=== PATIENT | male | born 1965 | race Caucasian/White ===

== ENCOUNTER 2017-03-15 00:09 | Inpatient (IN) | payer MEDICAID, SELFPAY ==
[2017-03-15] VITALS (16 sets, daily range): BP systolic 121–193; BP diastolic 63–103; PULSE 78–97; RESP 12–18; TEMP 36.5–37.1; O2SAT 93–100; BMI 29.3; BMI 28.8
--- NOTE | 2017-03-15 00:12 | NURSING ---
RN CALLED FOR EKG, PULLED OLD EKG'S FOR
--- NOTE | 2017-03-15 00:17 | CT_ITS ---
STUDY: CT BRAIN WITHOUT CONTRAST REASON FOR EXAM: Male, 51 years old. RT ARM WEAKNESS SINCE 22:50 PM,ELEVATED BP HX:HTN,CVA RADIATION DOSAGE (If Supplied By Facility): CTDIvol = ( 44.99 ) mGy, DLP = ( 779.24 ) mGycm TECHNIQUE: Transaxial CT imaging of the brain was performed without administration of intravenous contrast material. Individualized dose optimization techniques were used for this CT. COMPARISON: None. FINDINGS: Normal soft tissue structures. Normal calvarium. Normal size ventricles and extra-axial spaces for the patient's age. Normal white matter tracts of the cerebral hemispheres. Normal basal ganglia and thalami. Normal brainstem. Normal cerebellum. There is no intracranial hemorrhage. There are no findings of an acute ischemic infarction. Normal visualized paranasal sinuses. CT/Brain/Head without Contrast IMPRESSION: Normal unenhanced CT scan of the brain. Electronically Signed: Lucio Hines MD at 0:58 EST Tel , Service support ,
--- NOTE | 2017-03-15 00:17 | EKG12_ITS ---
Test Reason : STROKE Blood Pressure : / mmHG Vent. Rate : 091 BPM Atrial Rate : 091 BPM P-R Int : 180 ms QRS Dur : 088 ms QT Int : 370 ms P-R-T Axes : 060 065 067 degrees QTc Int : 455 ms Normal sinus rhythm Normal ECG Confirmed by JULIANO MARROQUIN, JOYCE ([id number]), dictionary editor MICHELLE HANDY ([id number]) on 03/20/2017 3:55:34 PM Referred By: CHRISTIANO Confirmed By:JOYCE HENAO MD
--- NOTE | 2017-03-15 00:19 | ED.VISSUMM ---
- ER Visit Summary Date of Service: 03/15/17 Chief Complaint: [] Right arm weakness History of Present Illness: The patient is a 51 M patient stated he noticed while he was laying in bed he had with right arm weakness at 10:50 PM. Stated it was difficult to lift his right arm. He has had this twice in the past with previous strokes. He is on Plavix. He took an aspirin after he noticed the symptoms. He recovered the next day per patient from his symptoms prior. His last stroke per patient was in 2016. He did he has numbness in his right arm as well. He denies any complaints in his leg slurred speech or other complaints. No visual problems. Stated he recovered his strength in the ambulance Physical Examination: [] Vital signs reviewed General: Well-nourished well-developed Head: Normocephalic atraumatic Eyes: Pupils equal round and reactive to light extraocular movements intact ENT: TMs clear no hemotympanum no trauma Neck: Nontender full range of motion Cardiovascular: Regular rate rhythm no murmurs normal S1-S2 Respiratory: No distress clear to auscultation bilaterally chest nontender Abdomen: Soft nontender nondistended normal bowel sounds no masses Back: Nontender no CVA tenderness Extremities: Nontender active range of motion ?4 extremities no trauma Skin: Normal color no trauma Neuro alert oriented cranial nerves II through XII intact strength of his right upper extremity. No appreciable weakness. Patient has subjective decreased sensation in the right arm diffusely. NIH stroke scale is a 1 secondary to sensation. Test Results: [] Glucose test within normal limits. EKG shows sinus rhythm without ischemia or arrhythmia. Emergency Department Course and Treatment: [] Monitored. CT head showed nothing acute. EKG shows sinus at 91. Troponin negative. CBC chemistries normal except potassium mildly low. The patient able to the bathroom without problems. He continues to have very mild abnormal sensations in his right arm. Sensation appears to be getting better. No weakness noted. At this time I feel he will need to be admitted for further evaluation. Blood pressure came down to 149/70 without treatment. He has had small microembolic strokes remotely. He may have had another stroke. Treatment Plan: [] Disposition: [] Impression: [] Right arm weakness and paresthesias suspected CVA This note was generated with [employer] software. It may contain incorrect words, spelling, and punctuation that were not noted in review of the chart prior to signing ED Disposition - Plan for ED Patient: Chief Complaint: Neuro S/Sx Referrals: Jacoby Vega [Primary Care Provider] -
[2017-03-15 00:30] LABS: Absolute Lymphocyte Count 2.55 X10^3/ul (0.83-4.51); Absolute Neutrophil Count 5.6 X10^3/uL (2.0-7.7); Basophil# 0.04 X10^3/uL; Basophil% 0.4 % (0-1); Eosinophil# 0.18 X10^3/uL; Eosinophils% 1.9 % (0-5); Hematocrit 41.1 % (40-54); Hemoglobin 13.8 g/dl (13.0-16.5); Lymphocyte # 2.55 X10^3/ul (4.0); Lymphocyte % 27.4 % (19-41); Mean Corp Hgb Conc 33.6 g/gl (32-36); Mean Corpuscular Volume 86.3 fL (80-94); Monocyte# 0.89 X10^3/uL; Monocyte% 9.5 % (0-10); Neutrophil # 5.64 X10^3/uL (2.7-7.7); Neutrophil % 60.6 % (47-70); Platelet Count 366 K/mm3 (150-450); RBC Distribution Width SD 43.3 fl (35.1-43.9); Red Blood Count 4.76 M/mm3 (4.6-6.2); White Blood Count 9.3 K/mm3 (4.4-11.0)
[2017-03-15 00:35] LABS: POSITIVE COUNT NO; POSITIVE DIFFERENTIAL NO; POSITIVE MORPHOLOGY NO
[2017-03-15 00:46] LABS: Anion Gap 7 (5-15); BUN 13 mg/dL (7-18); BUN/Creat Ratio 16.7 RATIO (10-20); Calcium,Total 8.6 mg/dL (8.5-10.1); Chloride 106 mmol/L (98-107); Creatinine, Serum 0.78 mg/dL (0.70-1.30); EST Glomerular Filtration Rate 111 mL/min (>60); Est Glom Filt Rate - Afr Amer 134 mL/min (>60); Glucose 106 mg/dL (70-110); Potassium 3.1 mmol/L (3.5-5.1); Sodium Level 141 mmol/L (136-145)
[2017-03-15 00:51] LABS: Prothrombin Time (Protime)PT. 12.7 SECONDS (11.7-14.9)
[2017-03-15 00:52] LABS: Partial Thromboplast Time 28.3 Seconds (24.1-36.2)
--- NOTE | 2017-03-15 02:06 | HP.PCM_ITS ---
Problem List (1) Right arm weakness Status: Acute History of Present Illness Date of Admission: 03/15/17 Chief Complaint: Right arm weakness, inability to move right arm The patient is a 51 year old M who was seen in the emergency room at [facility] with chief complaint of inability to move his right arm which she noted at approximately 10:50 PM on 03/14/17. Patient came to the ER by squad for evaluation, after arriving in the emergency room he was able to move his arm but he states at the time of my examination, that his right arm still does not feel right-he states it feels weak and he has no coordination in his right arm. Workup in the emergency room included a CT of the brain which was read out as normal, labs were remarkable for a potassium of 3.1. On examination, patient had movement in his right arm but his coordination was not at his baseline according to the patient. Patient will be admitted for right arm paresis and paresthesia, he will remain on a statin, aspirin will be added to his current medications, he will remain on Plavix and Norvasc. Patient will have an echocardiogram, and MRA of the head and neck, and MRI of the brain. Patient will be seen in consultation by neurology, answering service was notified of the consult. 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) Allergies No Known Allergies Allergy (Verified 03/15/17 00:11) Home Medications: Ambulatory Orders Medication Instructions Recorded Amlodipine [Norvasc] 10 mg PO DAILY 09/23/15 Atorvastatin Calcium [Lipitor] 40 mg PO QHS 09/23/15 Clopidogrel Bisulfate [Plavix] 75 mg PO DAILY 09/23/15 Surgical History: - - eye surgery 2016 Psychiatric History: No pertinent psych hx Lives: Friends Smoking Status: Current every day smoker Tobacco Use: Cigarettes Alcohol: None - *Family History Maternal History Items: Heart Disease - age 64 Paternal History Items: Unknown Review of Systems Constitutional: Denies: Anorexia, Chills, Fever, Night Sweats, Malaise, Weakness , Weight Change, Fatigue Eyes: Denies: Blurred vision, Cataracts, Conjunctivae Inflammation, Double vision, Drainage, Eyelid Inflammation, Pain, Vision Change HEENT: Denies: Difficulty Hearing, Difficulty Swallowing, Dysphasia, Ear Pain, Eye Pain, Head Aches, Hearing Changes, Nasal bleeding, Nasal Congestion, Post Nasal Drip Cardiovascular: Denies: Chest Pain, Claudication, Chest Pressure, Chest Tightness, Heaviness, Light Headedness, Orthopnea, Palpitations Respiratory: Denies: Cough, Hemoptysis, Pleuritic Pain, Shortness of Breath, Shortness of breath at rest, Shortness of breath upon exertion, Sputum production, Wheezing Gastrointestinal: Denies: Abdominal Pain, Constipation, Diarrhea, Hematemesis, Hematochezia, Nausea, Melena, Vomiting Genitourinary: Denies: Dysuria, Frequency, Hematuria, Hesitancy, Incontinence, Nocturia, Urgency Musculoskeletal: Denies: Back Pain, Foot Pain, Hand Pain, Joint Pain, Joint stiffness, Joint swelling, Joint Tenderness, Leg Pain Skin: Denies: Dryness, Jaundice, Lesions, Pruritis, Rash Neurological: Reports: Focal weakness - Right arm, Incoordination - Patient complains of incoordination in his right arm, Numbness - Patient complains of a numb feeling in his right arm. Denies: Balance problems, Blurred vision, Double vision, Change in Speech, Slurred speech, Confusion, Difficulty swallowing, Tingling, Tremor, Seizures Psychiatric: Denies: Anxiety, Depression, Homicidal Ideations, Suicidal Ideations Endocrine: Denies: Change in Body Habitus, Heat/ Cold Intolerance, Polydipsia, Polyuria, Hx of Irradiation Hematologic/ Lymphatic: Denies: Adenopathy, Anemia, Easy Bruising, Easy Bleeding , Petechiae, Purpura VTE Information - Inpt Only VTE Present on Admission: No VTE Mechan Device Prophylaxis: None VTE Pharm Prophylaxis ordered?: Yes Patient Problems: Active and Suspected Problems Right arm weakness (Acute) - Physical Exam General: Alert, Oriented x3, Cooperative, No apparent distress, Well developed, Well nourished HEENT: Atraumatic, PERRLA, EOMI, Normocephalic Oral: Moist Mucosa Neck: Supple, No JVD, Negative Carotid Bruits, No Nuchal Rigidity, Trachea Midline, Thyroid Normal Size and Texture Lungs: Clear to auscultation, Normal air movement, No rhonchi, No wheeze, No rales Cardiovascular: Regular rate, Regular Rhythm, Normal S1, Normal S2, No murmurs, No Ectopic Activity, PMI Normal, No rub noted, No Gallop Abdomen: Bowel Sounds Present, Soft, Non Tender, Non-Distended, No hernias noted Extremities: No clubbing, No cyanosis, No edema, Capillary Refill Less than 3 Seconds Skin: No rashes, No breakdown Musculoskeletal: No Tenderness to Palpation of Joints or Extremities Neurological: Cranial nerves II-XII grossly intact, Neuro grossly intact, Muscle tone normal, - - decreased sensation to touch in the right upper extremity Psych/Mental Status: Normal Affect, Appropriate, Alert and oriented to time, place, person, mood and affect Vital Signs Temp Pulse Resp BP Pulse Ox 97.8 F 84 16 161/89 H 95 03/15/17 01:15 03/15/17 01:17 03/15/17 01:17 03/15/17 01:17 03/15/17 01:17 Oxygen Flow Rate 2 Oxygen Delivery Method Nasal Cannula Assessment/Plan Active and Suspected Problems Right arm weakness (Acute) #1 right arm paresis and paresthesias-etiology unclear at this point, patient will be admitted to PCU, echocardiogram was ordered, neuro will see patient, patient will remain on Plavix and aspirin as well as Lipitor, patient will have an MRA of the head neck and an MRI of the brain tomorrow PT and OT will see the patient, I do not think speech therapy needs to see the patient #2 hypertension-patient will remain on amlodipine #3 cerebrovascular disease with past history of CVA in February 2015 and September 2015 #4 noncompliance with medical regimen-patient still smokes #5 hypokalemia-patient was given potassium chloride in the emergency room. Code Visit Inpatient E&M: 43312 Init Hosp L3
--- NOTE | 2017-03-15 02:15 | MRI_ITS ---
STUDY: MRA OF THE HEAD WITHOUT CONTRAST REASON FOR EXAM: Male, 51 years old. Right-sided weakness. TECHNIQUE: 3-D frxl-we-lvqciq (TOF) imaging was performed with MIPs. The study was performed unenhanced. COMPARISON: None. FINDINGS: Normal bilateral petrous carotid arteries. Normal right cavernous carotid artery with a normal supraclinoid bifurcation. Normal left cavernous carotid artery with a normal supraclinoid bifurcation. Normal right A1 segments of the anterior cerebral artery. Normal left A1 segments of the anterior cerebral artery. There is non-visualization of the anterior communicating artery (ACOM). Normal bilateral A2 segments of the anterior cerebral arteries. There is irregularity of the right M1 and M2 branches with minimal luminal narrowing, suggesting atherosclerotic plaque formation, without an occlusion. There is irregularity of the left M1 and M2 branches with minimal luminal narrowing, suggesting atherosclerotic plaque formation, without an occlusion. There is non-visualization of the right posterior communicating artery (PCOM). Normal left posterior communicating artery (PCOM). Normal bilateral vertebral arteries. Normal basilar artery with a normal basilar bifurcation. The visualized bilateral superior cerebellar (SCA) arteries are normal. Normal bilateral P1, P2 and visualized P3 segments of the posterior cerebral arteries. There is no demonstrated aneurysm of the [place]. There is no major vessel occlusion or hemodynamically significant stenosis. There is no demonstrated abnormality of the visualized brain. MRI/MRA Head ONLY without Contrast IMPRESSION: 1. Incomplete [place]. 2. No MRA evidence for hemodynamically significant stenosis or aneurysm. Electronically Signed: Theresa Moore MD at 11:49 EST , Service support ,
--- NOTE | 2017-03-15 02:15 | MRI_ITS ---
STUDY: MRA NECK WITH AND WITHOUT CONTRAST REASON FOR EXAM: Male, 51 years old. Right-sided weakness. Patient has history of previous CVA. TECHNIQUE: 3-D vtbh-tx-pacrhd (TOF) imaging was performed in an 1.5 T MRI scanner. 10 ml of Gadavist was administered for the contrast enhanced images. COMPARISON: MRA of the neck dated March 02, 2015. FINDINGS: RIGHT CAROTID ARTERIES: Normal right common carotid artery (CCA). There is mild atherosclerotic plaque formation with minimal narrowing of the right carotid bulb. There is mild atherosclerotic plaque formation of the origin of the right internal carotid artery with less than 50% cross sectional diameter stenosis. Normal visualized cervical portion of the right internal carotid artery. Normal origin of the right external carotid artery (ECA). LEFT CAROTID ARTERIES: Normal left common carotid artery (CCA). There is extensive atherosclerotic plaque formation with severe narrowing of the carotid bulb with a hemodynamically significant stenosis. There is extensive atherosclerotic plaque formation of the origin of the left internal carotid artery with an estimated stenosis of greater than 70%. Normal visualized cervical portion of the left internal carotid artery. Normal origin of the left external carotid artery (ECA). VERTEBRAL ARTERIES: Normal antegrade flow within the bilateral vertebral artery without a hemodynamically significant stenosis. MRI/MRA Neck WITH and W/O Contrast IMPRESSION: 1. Hemodynamically significant stenosis of the origin of the left internal carotid artery. 2. Nonhemodynamically significant vascular disease otherwise. Electronically Signed: Theresa Moore MD at 12:56 EST , Service support ,
--- NOTE | 2017-03-15 02:15 | ECHOD_ITS ---
Procedure This was a 2D Doppler, Color Flow transthoracic echocardiogram. Exam performed portable in patient room. Left Ventricle Normal size and thickness. The estimated ejection fraction is 75 %. Normal diastology for age. No regional wall motion abnormalities noted. Right Ventricle Normal size and thickness. Normal systolic function. Atria Normal left atrium. Normal right atrium. Normal atrial septum. Mitral Valve The mitral valve is structurally normal. No prolapse or stenosis seen. Tricuspid Valve Normal tricuspid valve. Trivial tricuspid valve insufficiency. Right ventricular systolic pressure estimated to be 34 mmHg. Aortic Valve Normal aortic valve. Trisinus/trileaflet aortic valve. Pulmonic Valve Normal pulmonic valve. Great Vessels Normal aortic root. Normal arch. Normal inferior vena cava. Inferior vena cava collapse with sniff. Pericardium/Pleural No pericardial effusion. Medication Previously negative bubble study. MMode/2D Measurements & Calculations LVIDd: 4.0 cm IVSd: 1.2 cm Ao root diam: 3.8 cm LVIDs: 2.4 cm LVPWd: 1.2 cm LA dimension: 3.3 cm RVDd: 3.9 cm FS: 39.2 % LAV(MOD-bp): 43.9 ml LA A4 area: 15.8 cm2 RA A4 area: 11.1 cm2 LAV(MOD-bp) Indexed: 18.9 ml/m2 LAV(MOD-sp2): 41.4 ml LAV(MOD-sp4): 44.1 ml Doppler Measurements & Calculations MV E max latrice: 97.7 cm/sec Ao V2 max: 165.5 cm/sec LV V1 max: 134.7 cm/sec MV A max latrice: 73.1 cm/sec Ao max P.0 mmHg LV V1 max P.3 mmHg MV E/A: 1.3 TR max latrice: 265.6 cm/sec TR max P.2 mmHg Interpretation Summary The estimated ejection fraction is 75 %. Normal diastology for age. Trivial tricuspid valve insufficiency. Right ventricular systolic pressure estimated to be 34 mmHg. Compared to echo report dated 09/23/2015, no appreciable changes noted. Ordering Physician: Swapnil Rojo Referring Physician: CHADWICK BAKER Performed By: June Henry, JAZMIN, RVT
--- NOTE | 2017-03-15 02:15 | MRI_ITS ---
STUDY: MRI BRAIN WITHOUT CONTRAST REASON FOR EXAM: Male, 51 years old. Right-sided weakness. TECHNIQUE: Standardized multiplanar fat and water weighted pulse sequences were obtained. Several images are limited by patient motion. COMPARISON: MRI of the brain dated September 23, 2015. FINDINGS: Normal size of the ventricles and extra-axial spaces for the patient's age. There are a limited number of small white matter hyperintensities, distributed throughout the deep white matter tracts of the cerebral hemispheres, consistent with mild chronic white matter ischemic changes. There is restricted diffusion present within the left frontal lobe and left parietal lobe near the central gyrus consistent with acute infarct. Normal T2* images of the brain without demonstrated susceptibility artifact. There is no demonstrated hemosiderin stain. Normal bilateral basal ganglia. Normal thalami. There is no extra-axial fluid accumulation. Normal flow voids within the major intracranial circulation suggesting patency by spin echo criteria. There is enlargement of the sella turcica with increased CSF within the sella and flattening of the pituitary gland consistent with an empty sellar syndrome. Normal infundibular stalk, hypothalamus, and optic chiasm. Normal tectal plate and pineal gland. Normal midbrain, corazon and medulla. Normal cerebellum. Normal basal cisterns. Normal bilateral temporal bones. Normal bilateral internal auditory canals. There are bilateral ocular lens implants with otherwise normal intraorbital contents. There is mucoperiosteal inflammatory disease of the paranasal sinuses consistent with mild chronic sinusitis. Normal calvarium and skull base. Normal visualized soft tissue structures. Normal visualized upper cervical spine. MRI/Brain without Contrast IMPRESSION: Multifocal areas of restricted diffusion in the posterior left frontal and parietal lobes consistent with acute infarcts. N.B. : The above information has been verbally conveyed by Theresa Moore MD to Dr. Stalin Fam, Referring Physician, on 03/15/2017 12:32:16 (ET). Electronically Signed: Theresa Moore MD at 12:32 EST , Service support , N.B. : The above information has been verbally conveyed by Theresa Moore MD to Dr. Stalin Fam, Referring Physician, on 03/15/2017 12:32:16 (ET).
[2017-03-15 05:58] LABS: Cholesterol 92 mg/dL (200); High Density Lipoprotein 29 mg/dL; Triglycerides 64 mg/dL; Very Low Density Lipoprotein 13 mg/dL (5-40)
--- NOTE | 2017-03-15 07:45 | NURSING ---
0241 Pt advised to use call light if needing to get out of bed or use the bathroom. Pt states That will not happen. I do not like to be restricted. Informed him it was for his safety since he is here for r/o stroke.
[2017-03-15 07:50] LABS: Bedside Glucose 104 mg/dL (70-110)
[2017-03-15] MEDS: Aspirin 81 MG TAB.CHEW PO (09:08)
[2017-03-15] MEDS: Clopidogrel Bisulfate 75 MG Tablet PO (09:08)
[2017-03-15] MEDS: amLODIPine 10 MG Tablet PO (09:08)
[2017-03-15] MEDS: LORazepam 2 MG/ML Syringe IV (09:11)
[2017-03-15] MEDS: 0.9% NaCl Peripheral Flush Adult/Peds IV (09:14)
--- NOTE | 2017-03-15 09:21 | MRI_ITS ---
STUDY: MRI CERVICAL SPINE WITHOUT CONTRAST REASON FOR EXAM: Male, 51 years old. Right-sided weakness. Patient has history of previous CVA. TECHNIQUE: Standardized fat and water weighted pulse sequences were obtained in the sagittal and axial planes. Several images are limited by patient motion. COMPARISON: Prior comparison studies are not available for review at this time. FINDINGS: Normal foramen magnum and brainstem-cervical cord junction. Normal craniovertebral junction. There are degenerative changes of the anterior atlantoaxial articulation. Normal odontoid process. There is straightening of the normal cervical lordosis. Normal vertebral bodies and posterior osseous elements. C2-3: Normal endplates. Normal disc height, signal and morphology. Normal central canal and intervertebral neural foramina. C3-4: There is a mild disc bulge and osteophyte complex. There is mild right-sided neural foraminal narrowing. Left neural foramen is patent. There is no significant central acquired canal stenosis. C4-5: Normal endplates. Normal disc height, signal and morphology. Normal central canal and intervertebral neural foramina. C5-6: There is narrowing of the disc space with broad central disc protrusion. There is severe left-sided neural foraminal narrowing with potential nerve impingement. The right neural foramen is mildly narrowed. There is no significant central acquired canal stenosis. C6-7: Normal endplates. Normal disc height, signal and morphology. Normal central canal and intervertebral neural foramina. C7-T1: Normal endplates. Normal disc height, signal and morphology. Normal central canal and intervertebral neural foramina. Normal cervical cord. There is no demonstrated cervical cord syrinx cavity. Normal visualized soft tissue structures. MRI/Spine Cervical (Routine) IMPRESSION: 1. Degenerative disc disease at C5-6 with potential left-sided nerve impingement. 2. Technically limited MRI due to patient motion. Electronically Signed: Theresa Moore MD at 12:49 EST , Service support ,
--- NOTE | 2017-03-15 12:57 | CT_ITS ---
STUDY: CTA NECK WITH CONTRAST REASON FOR EXAM: Male, 51 years old. CVA. RADIATION DOSAGE (If Supplied By Facility): CTDIvol = ( 32.63 ) mGy, DLP = ( 1470.66 ) mGycm TECHNIQUE: CT angiography with multi-detector data acquisition was performed from the aortic arch to the skull base following intravenous administration of 100 ml of Isovue 370 contrast. MIP images were reconstructed from the axial data set. Post-processing of the angiographic images was performed, with multiplanar reformation and 3D reconstruction. Individualized dose optimization techniques were used for this CT. COMPARISON: MRA of the neck dated March 15, 2017. FINDINGS: AORTIC ARCH: Normal visualized aortic arch. Normal origins of the brachiocephalic, left common carotid, and left subclavian arteries. RIGHT CAROTID ARTERIES: Normal right common carotid artery (CCA). There is mild atherosclerotic plaque formation with minimal narrowing of the right carotid bulb. Normal origin of the right internal carotid (ICA) artery without a hemodynamically significant stenosis. Normal visualized cervical portion of the right internal carotid artery. Normal origin of the right external carotid artery (ECA). LEFT CAROTID ARTERIES: Normal left common carotid artery (CCA). There is mild atherosclerotic plaque formation with minimal narrowing of the left carotid bulb. There is extensive atherosclerotic plaque formation of the origin of the left internal carotid artery with an estimated stenosis of greater than 70%. Normal visualized cervical portion of the left internal carotid artery. Normal origin of the left external carotid artery (ECA). VERTEBRAL ARTERIES: Normal bilateral vertebral arteries. Left vertebral artery arises from the aortic arch. Normal bilateral parotid glands. Normal bilateral algorithm developer spaces. Normal bilateral parapharyngeal spaces. Normal bilateral carotid spaces. Normal bilateral sublingual and submandibular glands and spaces. Normal visualized nasopharynx. Normal retropharyngeal space. Normal perivertebral space. Normal visualized bilateral faucial tonsils. The visualized tongue, tongue base and oropharynx are normal. The visualized cervical lymph nodes (levels I-) are within normal size limits, and maintain normal morphology. There is no demonstrated solid or cystic mass lesion. There is no abnormal contrast enhancement. Normal epiglottis, bilateral vallecula and hypopharynx. The pre-epiglottic and paraglottic adipose spaces are normal. Normal visualized bilateral piriform sinuses, aryepiglottic folds, vocal cords, and arytenoid-cricoid articulations. Normal subglottic trachea. Normal bilateral lobes of the thyroid gland. Normal visualized pulmonary apices. Normal visualized paranasal sinuses. There is multilevel degenerative changes of the cervical spine. CT/CTA Neck W/WO Contrast IMPRESSION: Hemodynamically significant stenosis of the proximal left internal carotid artery with at least 70% diameter stenosis. Electronically Signed: Theresa Moore MD at 16:59 EST , Service support ,
--- NOTE | 2017-03-15 12:57 | CT_ITS ---
STUDY: CTA OF THE BRAIN REASON FOR EXAM: Male, 51 years old. Cerebrovascular accident RADIATION DOSAGE (If Supplied By Facility): CTDIvol = ( 32.63 ) mGy, DLP = ( 1470.66 ) mGycm TECHNIQUE: CT angiography was performed with a multi-detector CT scanner. Data acquisition was obtained from the skull base through the vertex following intravenous administration of 100 ml of Isovue 370. MIP images were reconstructed from the axial data set. Post-processing of the angiographic images was performed, with multiplanar reformation and 3D reconstruction. Individualized dose optimization techniques were used for this CT. COMPARISON: Noncontrast head CT from the same day; brain MRI and MRA from the same day FINDINGS: The petrous carotid arteries are normal in appearance. Normal right cavernous carotid artery with a normal supraclinoid bifurcation. Normal left cavernous carotid artery with a normal supraclinoid bifurcation. Normal right A1 segment of the anterior cerebral artery. Normal left A1 segment of the anterior cerebral artery. Normal intact anterior communicating artery (ACOM). Normal bilateral A2 segments of the anterior cerebral arteries. Normal right M1 and M2 segments of the middle cerebral arteries, with a normal M1 bifurcation. Normal left M1 and M2 segments of the middle cerebral arteries, with a normal M1 bifurcation. Normal right posterior communicating artery (PCOM). Normal left posterior communicating artery (PCOM). Normal bilateral distal vertebral arteries. Normal basilar artery with a normal basilar bifurcation. The visualized bilateral superior cerebellar (SCA) arteries are within normal limits. Normal bilateral P1, P2 and visualized P3 segments of the posterior cerebral arteries. There is no demonstrated aneurysm of the [place]. There is no demonstrated enhancement of the visualized brain. CT/CTA Head W/WO Contrast IMPRESSION: Normal intracranial arteries without a demonstrated aneurysm or hemodynamically significant stenosis. There is no abnormal enhancement in the brain parenchyma. There is no acute hemorrhage. Electronically Signed: Anahy Markham MD at 21:40 EST Tel Direct: [phone], Service support ,
--- NOTE | 2017-03-15 14:01 | PN_ITS ---
Patient Problems: Active and Suspected Problems Right arm weakness (Acute) Subjective: Pt had shifted position in bed and developed sudden onset of right arm complete weakness and loss of sensation stating his arm felt . He had a mild all over headache as well. He denies double vision, palp, dizziness/LH, numbess or tingling. Currently he has use of his arm and sensation but states it still does not feel right. He is not having difficulty swallowing, slurring speech, facial droop or ataxia. He refuses to stay tonight to have JUSTYNA done. He had 2 prior ischemic strokes in 2016. He still smokes 1/2 ppd. - Physical Exam General: Alert, Oriented x3, Cooperative HEENT: Atraumatic, PERRLA, EOMI, Normocephalic Neck: Supple, No JVD, Negative Carotid Bruits Lungs: Clear to auscultation, Normal air movement Cardiovascular: Regular rate, No murmurs Abdomen: Bowel Sounds Present, Soft, Non Tender Extremities: No edema, Capillary Refill Less than 3 Seconds Skin: No rashes, No breakdown Musculoskeletal: No Tenderness to Palpation of Joints or Extremities Neurological: Cranial nerves II-XII grossly intact, - - he has good strength in his upper and lower extremities. He has good graphesthesia and sensation in his fingertips. His finger strength is excellent. His superintendent service strength is excellent. He has intact point to point discrimination. He has negative Spurling maneuver. He did have an accelerated biceps tendon reflex in the Right arm vs the left arm. Brachioradialis reflex and lower extremity reflex testing was intact and symmetric. He had a normal babinski reflex, and good directional and point sensation in his feet and toes. Psych/Mental Status: Normal Affect, Appropriate, Alert and oriented to time, place, person, mood and affect Vital Signs Temp Pulse Resp BP Pulse Ox 98.4 F 97 12 139/87 H 98 03/15/17 13:15 03/15/17 13:15 03/15/17 13:15 03/15/17 13:15 03/15/17 13:15 Oxygen Flow Rate 2 Oxygen Delivery Method Room Air Weight: 104.5 kg Body Mass Index (BMI) 28.8 Intake and Output for Last 24 Hours 03/13/17 03/14/17 03/15/17 23:59 23:59 23:59 Intake Total 300 / 300 Balance 300 / 300 Laboratory Tests Past 24 Hrs 03/15/17 03/15/17 05:20 05:20 Hemoglobin A1c Pending Triglycerides 64 Cholesterol 92 LDL Cholesterol 50 VLDL Cholesterol 13 HDL Cholesterol 29 L Assessment/Plan Active and Suspected Problems Right arm weakness (Acute) 1. Acute ischemic CVA-multifocal areas of restricted diffusion in the posterior left frontal and parietal lobes consistent with acute infarcts. Discussed with neurology. He had 2 prior similar strokes on the same side and 2016 in February and September. He has been on aspirin, statin, Plavix. At that time he had an outpatient Holter monitor that did not reveal any unusual rhythm rhythms. MRA of the head noted noted incomplete [place]. MRA neck shows hemodynamically significant stenosis of the origin of the left internal carotid artery. we will obtain CTA of the head and neck. JUSTYNA will be done tomorrow if the patient is willing to stay for. We will also check a hemoglobin A1c. LDL is at goal, statin maximized regardless. Trop neg. The MRI of his C-spine shows degenerative disc disease at C5-C6 with potential left-sided nerve impingement which is not consistent with with the symptoms he is reporting on the right side. -PTOTST evals 2. HTN - permissive htn 3. Nicotine abuse - advised pt on discontinuing smoking and risk of stroke. Still smokes 1/2 ppd 4. Hypokalemia - repleted recheck in AM. DVT prophylaxis: Lovenox Discharge planning: Patient will likely leave AMA tonight, encouraged him to stay for JUSTYNA in the morning. This patient was seen by Dl Peters PA-C under the supervision of Doctor Fam.
[2017-03-15 14:06] LABS: Hemoglobin A1c 5.5 % (4.2-6.3)
--- NOTE | 2017-03-15 14:15 | CON.PCM_ITS ---
Problem List (1) Stroke Status: Acute Qualifiers: CVA mechanism: embolism Precerebral and cerebral artery: middle cerebral artery Laterality of affected vessel: left Qualified Code(s): I63.412 - Cerebral infarction due to embolism of left middle cerebral artery Reason for Consult Date of Consultation: 03/15/17 Reason for Consultation: Stroke History of Present Illness: The patient is a 51 year old CM with PMH HTN, HLD H/O Left MCA embolic stroke in 2016 (2 times), no residual deficit on Plavix, Tobacco abuse admitted with acute onset Right arm weakness and numbness. Per patient his symptoms started yesterday night (03/14/17) at around 10:50 am, NIHSS was 1 on admission per ED documentation, was not IVtpa candidate, at present per patient his symptoms are improving, but still has some mild weakness and numbness in the right UE, denies any symptoms in the right LE, denies any OSPINA, visual disturbances. Lives alone, is going through divorce process, does not use cane or walker to ambulate , denies any frequent falls, does not drive. MRI brain done on admission reported to show multiple small embolic (likely athero-embolic) Left MCA acute stroke. MRA head was reported to be normal, MRA neck show hemodynamically significant stenosis of > 70% on the left ICA. Patient had similar Left MCA embolic strokes in 2016, has been worked up in the past without any etiology, 30 day event recorder in 2016 reported not to show any Afib. [] 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) Allergies No Known Allergies Allergy (Verified 03/15/17 00:11) Home Medications: Ambulatory Orders Medication Instructions Recorded Amlodipine [Norvasc] 10 mg PO DAILY 09/23/15 Atorvastatin Calcium [Lipitor] 40 mg PO QHS 09/23/15 Clopidogrel Bisulfate [Plavix] 75 mg PO DAILY 09/23/15 Surgical History: - - eye surgery 2016 Psychiatric History: No pertinent psych hx Lives: Alone, Friends Smoking Status: Current every day smoker Tobacco Use: Cigarettes Alcohol: None Drugs: None - *Family History Maternal History Items: Heart Disease - age 64 Paternal History Items: Unknown Review of Systems Constitutional: Reports: - - complete ROS negative except as documented in HPI - Physical Exam General: Alert, Oriented x3, Cooperative HEENT: Atraumatic, PERRLA, EOMI, Normocephalic Neck: Supple, No JVD, Negative Carotid Bruits Lungs: Clear to auscultation, Normal air movement Cardiovascular: Regular rate, No murmurs Abdomen: Bowel Sounds Present, Soft, Non Tender Extremities: No edema, Capillary Refill Less than 3 Seconds Skin: No rashes, No breakdown Musculoskeletal: No Tenderness to Palpation of Joints or Extremities Neurological: - - consious, alert, AoA x3, CN 2-12 grossly intact, Power 5/5 Left UE/LE, +4/5 Right UE and 5/5 Right LE, pronator drift +ve on the right UE, mild sensory loss right UE, Reflexes + B/L B/S/T/K/A, gait normal, no cerebellar signs, NIHSS 2 at present (right UE pronator drift and right UE mild sensory loss) Psych/Mental Status: Normal Affect, Appropriate Vital Signs Temp Pulse Resp BP Pulse Ox 98.4 F 97 12 139/87 H 98 03/15/17 13:15 03/15/17 13:15 03/15/17 13:15 03/15/17 13:15 03/15/17 13:15 Oxygen Flow Rate 2 Oxygen Delivery Method Room Air Weight: 104.5 kg Body Mass Index (BMI) 28.8 Intake and Output for Last 24 Hours 03/13/17 03/14/17 03/15/17 23:59 23:59 23:59 Intake Total 300 / 300 Balance 300 / 300 Laboratory Tests Past 24 Hrs 03/15/17 03/15/17 05:20 05:20 Hemoglobin A1c Pending Triglycerides 64 Cholesterol 92 LDL Cholesterol 50 VLDL Cholesterol 13 HDL Cholesterol 29 L Assessment/Plan The patient is a 51 year old CM with PMH HTN, HLD H/O Left MCA embolic stroke in 2016 (2 times), no residual deficit on Plavix, Tobacco abuse admitted with acute onset Right arm weakness and numbness. Per patient his symptoms started yesterday night (03/14/17) at around 10:50 am, NIHSS was 1 on admission per ED documentation, was not IVtpa candidate, at present per patient his symptoms are improving, but still has some mild weakness and numbness in the right UE, denies any symptoms in the right LE, denies any OSPINA, visual disturbances. Lives alone, is going through divorce process, does not use cane or walker to ambulate , denies any frequent falls, does not drive. MRI brain done on admission reported to show multiple small embolic (likely athero-embolic) Left MCA acute stroke. MRA head was reported to be normal, MRA neck show hemodynamically significant stenosis of > 70% on the left ICA. Patient had similar Left MCA embolic strokes in 2016, has been worked up in the past without any etiology, 30 day event recorder in 2016 reported not to show any Afib. Impression Acute left MCA athero-embolic stroke Left ICA > 70% stenosis Plan -Recommend dual AP with ASA and Plavix for 3 months. Then switch to single AP. Bleeding risks discussed in detail with the patient, he understands and agrees with the same. -Recommend Lipitor 80 mg PO q hs -MRI brain- small multiple athero-embolic left MCA stroke -MRA head- negative, MRA neck-Left ICA > 70% stenosis -Recommend CTA head/neck -Recommend TTE -LDL-50, Lrc4i-0.5 -Avoid hypotension -Recommend Vascular surgery consult for consideration of Left CEA -MRI C spine shows severe left foraminal stenosis with potential nerve impingement-recommend spine surgery consult for the same. -Case d/w SERA Peters -Patient counseled to stop smoking. And the risk of stroke associated with the same. Patient understands the same. -GI/DVT prophylaxis -Recommend PT/OT -Fall precautions. -Follow up with Neurology as outpatient in 2-3 weeks -Thank you for allowing us to participate in patients care and management I spent 60 minutes taking history, doing physical examination, reviewing medical records, coordinating care and counseling the patient. Code Visit Inpatient E&M: [id number] Init Hosp L3
--- NOTE | 2017-03-15 14:51 | CASEMGMT ---
JAMEE JEROME attempted to meet with patient. Patient would prefer not talk at this time. Per Dl ULLOA, it has been recommended patient transfer to tertiary, but patient does not wish to do so, and may want to leave AMA.
--- NOTE | 2017-03-15 14:57 | NURSING ---
pt left AMA at 1500. Risks discussed by both this RN and Verna ZAMORA.
--- NOTE | 2017-03-15 15:39 | PCM.DC.SUM ---
<Dl Peters - Last Filed: 03/15/17 15:39> Discharge Date and Diagnosis Date of Admission: 03/15/17 Date of Discharge: 03/15/17 - Primary Discharge Diagnosis Acute left MCA athero embolic stroke Left ICA >70% stenosis Hx 2 prior Ischemic strokes 2015 Pt noncompliance with medical therapy - left AMA Cervical DDD with C5/C6 left sided nerve impingement HTN Hypokalemia Nicotine abuse - Secondary Discharge Diagnosis Chronic Problems Dyslipidemia (Chronic) HTN (hypertension) (Chronic) Idiopathic ischemic cerebrovascular accident in adult (Chronic) Hospital Course and Treatment Imaging Results: CT/Brain/Head without Contrast IMPRESSION: Normal unenhanced CT scan of the brain. MRI/Brain without Contrast IMPRESSION: Multifocal areas of restricted diffusion in the posterior left frontal and parietal lobes consistent with acute infarcts. MRI/MRA Neck WITH and W/O Contrast IMPRESSION: 1. Hemodynamically significant stenosis of the origin of the left internal carotid artery. 2. Nonhemodynamically significant vascular disease otherwise. MRI/Spine Cervical (Routine) IMPRESSION: 1. Degenerative disc disease at C5-6 with potential left-sided nerve impingement. 2. Technically limited MRI due to patient motion. Echo: MRI/MRA Head ONLY without Contrast IMPRESSION: 1. Incomplete [place]. 2. No MRA evidence for hemodynamically significant stenosis or aneurysm. Interpretation Summary The estimated ejection fraction is 75 %. Normal diastology for age. Trivial tricuspid valve insufficiency. Right ventricular systolic pressure estimated to be 34 mmHg. Compared to echo report dated 09/23/2015, no appreciable changes noted. Consultants: Juanita: Neuro Operations: None Procedures: 2-D Echocardiogram Summary of Care Provided: Physical exam on day of discharge: See daily progress note Hospital course: The patient is a 51 year old M who presented to the ER with acute right arm numbness and weakness. He had prior ischemic infarcts in 2016. He has been on asprin, plavix, and atorvastatin. He was admitted for stroke work up, neurology consulted. His symptoms resolved overnight. MRI of the brain revealed multiple infarcts in the posterior left frontal and parietal lobes consistent with acute infarcts. MRA revealed a significant area of stenosis in the left internal carotid artery >70% stenosis. TTE was done with EF 75%, normal diastolic G, trivial TVI, RVSP 34 with no appreciable changes since September 2015. Neurology felt that the patient needed transfer for urgent evaluation by a neurosurgeon as he felt the strokes were a result of the stenosis seen on the MRA. CTA was done as well however the results are pending at this time. A JUSTYNA was ordered but the patient refused to do it. MRI of the C spine was done and showed left sided nerve impingement felt to be unrelated to the current presenting symptoms that would however need workup by a spinal surgeon as an outpatient. The patient upon hearing that he was to be transferred for surgical evaluation left AGAINST MEDICAL ADVICE. This patient was seen by Dl Peters PA-C under the supervision of Doctor Fam. [] Discharge Diet: Low fat/ Low Cholesterol, 4000 mg Sodium Diet Discharge Activity: - - Patient left AMA Home Medications: Medications to take at Discharge Amlodipine [Norvasc] 10 mg PO DAILY 09/23/15 Atorvastatin Calcium [Lipitor] 40 mg PO QHS 09/23/15 Clopidogrel Bisulfate [Plavix] 75 mg PO DAILY 09/23/15 Primary Care Physician: Jacoby Vega [Primary Care Provider] - Additional Instructions: No further instructions were given as the patient left AMA and was not cleared for discharge. Disposition: Against Medical Advice Minutes spent on discharge:: 40 Patient Condition:: Guarded Meaningful Use Info Meaningful Use Diagnoses (Choose all that apply): Ischemic CVA - CVA Therapy Assessed for PT,OT and/or ST?: No Reason therapy not assessed?: Patient Noncompliant - Ischemic Stroke Antithrombotic order at d/c?: Yes Dx of Atrial fib/flutter?: No Anticoagulant at discharge?: No Reason anticoagulant not ordered: Procedure not Indicated Statins at discharge?: Yes Primary Dx Acute Ischemic CVA?: Yes IV tPA ordered during stay?: No Reason IV t-PA not ordered: Procedure not Indicated <Stalin Fam - Last Filed: 03/15/17 16:38> Discharge Date and Diagnosis - Secondary Discharge Diagnosis Chronic Problems Dyslipidemia (Chronic) HTN (hypertension) (Chronic) Idiopathic ischemic cerebrovascular accident in adult (Chronic) Hospital Course and Treatment Imaging Results: 03/15/17 09:21 MRI Cervical [Spine Cervical (Routine)] [MRI] Urgent 03/15/17 12:57 CTA Head W/WO Contrast [CT] Urgent CTA Neck W/WO Contrast [CT] Urgent Summary of Care Provided: The patient is a 51 year old M's medical history significant for previous CVA who presented with right upper extremity numbness and weakness. Patient was placed on a monitored bed underwent subsequent evaluation without MRI which demonstrated multifocal areas of infarct involving the left frontal as well as parietal lobe. Patient was seen in consultation by neurology recommended for patient to undergo JUSTYNA. Patient was also noted to have a hemodynamically significant stenosis involving the origin of the left internal carotid artery again neurology requested for patient to be transferred to a tertiary care center for intervention patient will eventually declined the transfer and instead elected to sign out AGAINST MEDICAL ADVICE Hospital course as elicited above Dl Peters PA-C Spent on discharge 45 minutes Code Visit Inpatient E&M: 91857 Disch Hosp
--- NOTE | 2017-03-15 15:51 | DS.PCM_ITS ---
<Dl Peters - Last Filed: 03/15/17 15:39> Discharge Date and Diagnosis Date of Admission: 03/15/17 Date of Discharge: 03/15/17 - Primary Discharge Diagnosis Acute left MCA athero embolic stroke Left ICA >70% stenosis Hx 2 prior Ischemic strokes 2015 Pt noncompliance with medical therapy - left AMA Cervical DDD with C5/C6 left sided nerve impingement HTN Hypokalemia Nicotine abuse - Secondary Discharge Diagnosis Chronic Problems Dyslipidemia (Chronic) HTN (hypertension) (Chronic) Idiopathic ischemic cerebrovascular accident in adult (Chronic) Hospital Course and Treatment Imaging Results: CT/Brain/Head without Contrast IMPRESSION: Normal unenhanced CT scan of the brain. MRI/Brain without Contrast IMPRESSION: Multifocal areas of restricted diffusion in the posterior left frontal and parietal lobes consistent with acute infarcts. MRI/MRA Neck WITH and W/O Contrast IMPRESSION: 1. Hemodynamically significant stenosis of the origin of the left internal carotid artery. 2. Nonhemodynamically significant vascular disease otherwise. MRI/Spine Cervical (Routine) IMPRESSION: 1. Degenerative disc disease at C5-6 with potential left-sided nerve impingement. 2. Technically limited MRI due to patient motion. Echo: MRI/MRA Head ONLY without Contrast IMPRESSION: 1. Incomplete [place]. 2. No MRA evidence for hemodynamically significant stenosis or aneurysm. Interpretation Summary The estimated ejection fraction is 75 %. Normal diastology for age. Trivial tricuspid valve insufficiency. Right ventricular systolic pressure estimated to be 34 mmHg. Compared to echo report dated 09/23/2015, no appreciable changes noted. Consultants: Juanita: Neuro Operations: None Procedures: 2-D Echocardiogram Summary of Care Provided: Physical exam on day of discharge: See daily progress note Hospital course: The patient is a 51 year old M who presented to the ER with acute right arm numbness and weakness. He had prior ischemic infarcts in 2016. He has been on asprin, plavix, and atorvastatin. He was admitted for stroke work up, neurology consulted. His symptoms resolved overnight. MRI of the brain revealed multiple infarcts in the posterior left frontal and parietal lobes consistent with acute infarcts. MRA revealed a significant area of stenosis in the left internal carotid artery >70% stenosis. TTE was done with EF 75%, normal diastolic G, trivial TVI, RVSP 34 with no appreciable changes since September 2015. Neurology felt that the patient needed transfer for urgent evaluation by a neurosurgeon as he felt the strokes were a result of the stenosis seen on the MRA. CTA was done as well however the results are pending at this time. A JUSTYNA was ordered but the patient refused to do it. MRI of the C spine was done and showed left sided nerve impingement felt to be unrelated to the current presenting symptoms that would however need workup by a spinal surgeon as an outpatient. The patient upon hearing that he was to be transferred for surgical evaluation left AGAINST MEDICAL ADVICE. This patient was seen by Dl Peters PA-C under the supervision of Doctor Fam. [] Discharge Diet: Low fat/ Low Cholesterol, 4000 mg Sodium Diet Discharge Activity: - - Patient left AMA Home Medications: Medications to take at Discharge Amlodipine [Norvasc] 10 mg PO DAILY 09/23/15 Atorvastatin Calcium [Lipitor] 40 mg PO QHS 09/23/15 Clopidogrel Bisulfate [Plavix] 75 mg PO DAILY 09/23/15 Primary Care Physician: Jacoby Vega [Primary Care Provider] - Additional Instructions: No further instructions were given as the patient left AMA and was not cleared for discharge. Disposition: Against Medical Advice Minutes spent on discharge:: 40 Patient Condition:: Guarded Meaningful Use Info Meaningful Use Diagnoses (Choose all that apply): Ischemic CVA - CVA Therapy Assessed for PT,OT and/or ST?: No Reason therapy not assessed?: Patient Noncompliant - Ischemic Stroke Antithrombotic order at d/c?: Yes Dx of Atrial fib/flutter?: No Anticoagulant at discharge?: No Reason anticoagulant not ordered: Procedure not Indicated Statins at discharge?: Yes Primary Dx Acute Ischemic CVA?: Yes IV tPA ordered during stay?: No Reason IV t-PA not ordered: Procedure not Indicated <Stalin Fam - Last Filed: 03/15/17 16:38> Discharge Date and Diagnosis - Secondary Discharge Diagnosis Chronic Problems Dyslipidemia (Chronic) HTN (hypertension) (Chronic) Idiopathic ischemic cerebrovascular accident in adult (Chronic) Hospital Course and Treatment Imaging Results: 03/15/17 09:21 MRI Cervical [Spine Cervical (Routine)] [MRI] Urgent 03/15/17 12:57 CTA Head W/WO Contrast [CT] Urgent CTA Neck W/WO Contrast [CT] Urgent Summary of Care Provided: The patient is a 51 year old M's medical history significant for previous CVA who presented with right upper extremity numbness and weakness. Patient was placed on a monitored bed underwent subsequent evaluation without MRI which demonstrated multifocal areas of infarct involving the left frontal as well as parietal lobe. Patient was seen in consultation by neurology recommended for patient to undergo JUSTYNA. Patient was also noted to have a hemodynamically significant stenosis involving the origin of the left internal carotid artery again neurology requested for patient to be transferred to a tertiary care center for intervention patient will eventually declined the transfer and instead elected to sign out AGAINST MEDICAL ADVICE Hospital course as elicited above Dl Peters PA-C Spent on discharge 45 minutes Code Visit Inpatient E&M: 87501 Disch Hosp
== END 2017-03-15 15:10 | disposition left against medical advice (07) | DRG 14 ==
LOC: ED 00:20 → PCU 01:40
PROVIDERS: Physician Assistant; Admitting Provider Internal Medicine; Emergency Provider Emergency Medicine; Family Provider Nurse Practitioner Family; PCP Nurse Practitioner Family; Visit Provider Internal Medicine
DX: I63.412 Cerebral infarction due to embolism of left middle cerebral artery (principal); E78.5 Hyperlipidemia, unspecified; I65.22 Occlusion and stenosis of left carotid artery; E87.6 Hypokalemia; I10 Essential (primary) hypertension; Z86.73 Personal history of transient ischemic attack (TIA), and cerebral infarction without residual deficits; F17.210 Nicotine dependence, cigarettes, uncomplicated; Z79.02 Long term (current) use of antithrombotics/antiplatelets; Z79.899 Other long term (current) drug therapy; Z91.19 Patient's noncompliance with other medical treatment and regimen; M50.322 Other cervical disc degeneration at C5-C6 level; R20.2 Paresthesia of skin; G83.21 Monoplegia of upper limb affecting right dominant side; R29.701 NIHSS score 1
CPT/HCPCS: 36415; 70450; 70496; 70498; 70544; 70549; 70551; 72141; 80048; 80061; 82962; 83036; 84484; 85025; 85610; 85730; 93005; 93306; 97161; 97165; 99285; A9585; Q9967; A4216

== ENCOUNTER → 2017-05-01 11:13 | Outpatient (CLI) | payer MEDICAID, SELFPAY ==
--- NOTE | 2017-05-01 11:15 | CDU_ITS ---
Reason For Study: Carotid Stenosis Rt. Velocities/BP Lt. Velocities/BP Prox CCA 92/15 cm/sec. Prox CCA 99/17 cm/sec. Mid CCA 80/14 cm/sec. Mid CCA 77/15 cm/sec. Dist CCA 85/15 cm/sec. Dist CCA 68/12 cm/sec. Prox ICA 85/18 cm/sec. Prox ICA 212/52 cm/sec. Mid ICA 70/19 cm/sec. Mid ICA 202/52 cm/sec. Dist ICA 111/27 cm/sec. Dist ICA 190/42 cm/sec. Rt. ICA/CCA = 1.38. Lt. ICA/CCA = 2.75. Prox ECA 191/25 cm/sec. Prox ECA 199/28 cm/sec. Rt. Vert. 64/19 cm/sec. Lt. Vert. 79/16 cm/sec. Right Extracranial There is homogeneous, smooth atherosclerotic plaque noted in the right common carotid artery. There is heterogeneous, irregular atherosclerotic plaque noted in the right internal carotid artery. There is no significant atherosclerotic plaque noted in the right external carotid artery. Antegrade flow is noted in the right vertebral artery. Left Extracranial There is homogeneous, smooth atherosclerotic plaque noted in the left common carotid artery. There is homogeneous, irregular atherosclerotic plaque noted in the left internal carotid artery. There is intimal thickening but no significant atherosclerotic plaque noted in the left external carotid artery. Antegrade flow is noted in the left vertebral artery. Procedure Carotid Duplex [id number]. Exam performed in department. Interpretation Summary Smooth plague within the right carotid bulb and internal carotid with <50% stenosis. Irregular plague within the left internal carotid with 50-69% stenosis, likely closer to the upper limits of this range. Moderate disease bilateral external carotids. Patent and antegrade vertebrals bilaterally Ordering Physician: Brendon Moore Referring Physician: Jacoby Vega Performed By: Keisha Flores, DADACS, RVT
== END ==
PROVIDERS: Family Provider Nurse Practitioner Family; PCP Nurse Practitioner Family; Visit Provider Surgery
DX: I65.23 Occlusion and stenosis of bilateral carotid arteries (principal)
CPT/HCPCS: 93880

== ENCOUNTER → 2020-12-01 14:18 | Outpatient (CLI) | payer MEDICAID, SELFPAY ==
--- NOTE | 2020-12-01 14:23 | CT_ITS ---
ACR Level 3 findings have been noted. An addendum which confirms receipt of the report will follow. STUDY: CTA NECK WITH CONTRAST REASON FOR EXAM: Male, 55 years old. Carotid stenosis RADIATION DOSAGE (If Supplied By Facility): CTDIvol = ( 18.88 ) mGy, DLP = ( 575.73 ) mGycm TECHNIQUE: CT angiography with multi-detector data acquisition was performed from the aortic arch to the skull base following intravenous administration of 100 mL of ISOVUE-370. MIP images were reconstructed from the axial data set. Post-processing of the angiographic images was performed, with multiplanar reformation and 3D reconstruction. Individualized dose optimization techniques were used for this CT. COMPARISON: 88 there 03/15/2017. FINDINGS: AORTIC ARCH: Normal visualized aortic arch. Normal origins of the brachiocephalic, left common carotid, and left subclavian arteries. RIGHT CAROTID ARTERIES: Minimal noncalcified plaques along the right common carotid artery (CCA). Minimal noncalcified plaques along the widely patent right internal carotid bulb. Widely patent origin of the right internal carotid (ICA) artery without a hemodynamically significant stenosis. Widely patent visualized cervical portion of the right internal carotid artery. Normal origin of the right external carotid artery (ECA). LEFT CAROTID ARTERIES: Normal left common carotid artery (CCA). Large increase thickness of the noncalcified plaque in the distal half of the left internal carotid bulb. Greater than 70% stenosis at the midportion of the left internal carotid artery bulb due to large increase thickness of the noncalcified atherosclerotic plaque. The soft plaque extends to the left proximal internal carotid artery. Normal remaining cervical portion of the left internal carotid artery. Normal origin of the left external carotid artery (ECA). VERTEBRAL ARTERIES: Normal bilateral vertebral arteries. The right is dominant. The nondominant left vertebral artery has a direct aortic arch origin. CT/CTA Neck W/WO Contrast IMPRESSION: 1. Worsening of left internal carotid artery stenosis, now greater than 70% stenosis in the midportion of the left internal carotid artery bulb. This is due to large increase thickness of the noncalcified atherosclerotic plaque. This increase thickness of the noncalcified soft plaque extends into the left proximal internal carotid artery and is worrisome for potential source of emboli. 2. Widely patent bilateral common carotid arteries, right external carotid artery and right internal carotid artery. 3. Widely patent aortic arch and origins of the great vessels. 4. Widely patent nondominant left vertebral artery which has a direct aortic arch origin. 5. Widely patent dominant right vertebral artery. Electronically Signed: Apollo Gabriel MD at 9:10 EDT , Service support ,
[2020-12-01 14:35] LABS: CREATININE FINGERSTICK 0.8 mg/dL (0.70-1.30); EGFR FINGERSTICK > 60.0000 mL/min (>60)
== END ==
PROVIDERS: PCP Nurse Practitioner Family; Referring Provider Surgery; Visit Provider Surgery
DX: I63.412 Cerebral infarction due to embolism of left middle cerebral artery (principal); I65.22 Occlusion and stenosis of left carotid artery
CPT/HCPCS: 70498; Q9967

== ENCOUNTER → 2021-12-23 | Outpatient (CLI) | payer MEDICAID, SELFPAY ==
--- NOTE | 2021-12-23 13:05 | CDU_ITS ---
Reason For Study: carotid artery disease Rt. Velocities/BP Lt. Velocities/BP Prox CCA 83.9/12.4 cm/sec. Prox CCA 85.0/19.0 cm/sec. Mid CCA 67.4/8.0 cm/sec. Mid CCA 65.2/16.8 cm/sec. Dist CCA 53.1/12.4 cm/sec. Dist CCA 45.6/13.5 cm/sec. Prox ICA 74.0/20.1 cm/sec. Prox ICA 244.4/75.9 cm/sec. Mid ICA 77.3/22.3 cm/sec. Mid ICA 234.0/68.2 cm/sec. Dist ICA 86.3/28.6 cm/sec. Dist ICA 195.2/57.8 cm/sec. Rt. ICA/CCA = 1.3. Lt. ICA/CCA = 3.7. Prox ECA 81.7/11.3 cm/sec. Prox ECA 121.1/18.8 cm/sec. Rt. Vert. 49.5/13.9 cm/sec. Lt. Vert. 36.2/8.8 cm/sec. Right Extracranial There is homogeneous, smooth atherosclerotic plaque noted in the right common carotid artery. There is heterogeneous, irregular atherosclerotic plaque noted in the right internal carotid artery. There is intimal thickening but no significant atherosclerotic plaque noted in the right external carotid artery. Antegrade flow is noted in the right vertebral artery. Left Extracranial There is heterogeneous, irregular atherosclerotic plaque noted in the left common carotid artery. There is heterogeneous, irregular atherosclerotic plaque noted in the left internal carotid artery. There is intimal thickening but no significant atherosclerotic plaque noted in the left external carotid artery. Antegrade flow is noted in the left vertebral artery. Procedure Carotid Duplex [id number]. This is a Carotid Duplex examination using B-mode, color flow and specral Doppler. The exam was diagnostic. Exam performed in department. VL/Carotid Duplex Ultrasound Interpretation Summary Irregular plaque proximal right internal carotid artery with less than 50% sten osis. Less than 50% stenosis right external carotid artery Irregular plaque at the proximal left internal carotid artery with greater than 70% stenosis based upon velocity at the internal carotid artery. Less than 50% stenosis left external carotid artery Patent antegrade vertebral arteries bilaterally Findings have slightly progressed on the left from the previous examination of May 01, 2017 Ordering Physician: Kyler Flores Performed By: Agustín Murray RVT
== END | disposition home or self-care (01) ==
LOC: CVS 13:04
PROVIDERS: PCP Nurse Practitioner Family; Referring Provider Nurse Practitioner Family; Visit Provider Nurse Practitioner Family
DX: I65.22 Occlusion and stenosis of left carotid artery (principal)
CPT/HCPCS: 93880

== ENCOUNTER → 2023-07-26 | Outpatient (CLI) | payer MEDICAID, SELFPAY ==
--- NOTE | 2023-07-26 09:33 | CDU_ITS ---
Reason For Study: LEFT BRUIT Rt. Velocities/BP Lt. Velocities/BP Prox CCA 68.3/9.7 cm/sec. Prox CCA 61.9/13.9 cm/sec. Mid CCA 54.1/10.7 cm/sec. Mid CCA 47.0/12.1 cm/sec. Dist CCA 38.4/11/3 cm/sec. Dist CCA 32.2/7.0 cm/sec. Prox ICA 96.6/23.6 cm/sec. Prox ICA 241.1/60.1 cm/sec. Mid ICA 79.3/16.0 cm/sec. Mid ICA 202.4/47.2 cm/sec. Dist ICA 72.6/18.8 cm/sec. Dist ICA 101.6/41.3 cm/sec. Rt. ICA/CCA = 1.79. Lt. ICA/CCA = 5.12. Prox ECA 99.3/10.9 cm/sec. Prox ECA 18./13.9 cm/sec. Rt. Vert. 55.6/17.9 cm/sec. Lt. Vert. 38.1/12.4 cm/sec. Right Extracranial There is homogeneous, smooth atherosclerotic plaque noted in the right common carotid artery. There is heterogeneous, irregular atherosclerotic plaque noted in the right internal carotid artery. There is intimal thickening but no significant atherosclerotic plaque noted in the right external carotid artery. Antegrade flow is noted in the right vertebral artery. Left Extracranial There is heterogeneous, irregular atherosclerotic plaque noted in the left common carotid artery. There is heterogeneous, irregular atherosclerotic plaque noted in the left internal carotid artery. There is intimal thickening but no significant atherosclerotic plaque noted in the left external carotid artery. Antegrade flow is noted in the left vertebral artery. VL/Carotid Duplex Ultrasound Interpretation Summary Mild (<50%) stenosis right extracranial internal carotid. Severe (>70%) stenosis left extracranial internal carotid. Patent and antegrade vertebrals bilaterally. Ordering Physician: Mary Pitts Referring Physician: Mary Pitts Performed By: June Heaton RVT
== END | disposition home or self-care (01) ==
LOC: CVS 09:32
PROVIDERS: PCP Nurse Practitioner Family; Referring Provider Physician Assistant Medical; Visit Provider Physician Assistant Medical
DX: R09.89 Other specified symptoms and signs involving the circulatory and respiratory systems (principal)
CPT/HCPCS: 93880

== ENCOUNTER → 2023-12-05 | Outpatient (CLI) | payer MEDICAID, SELFPAY ==
--- NOTE | 2023-12-05 13:56 | CT_ITS ---
STUDY: CTA HEAD AND NECK WITH CONTRAST REASON FOR EXAM: Male, 58 years old. carotid stenosis RADIATION DOSAGE (If Supplied By Facility): CTDIvol = ( 26.99 ) mGy, DLP = ( 1718.45 ) mGycm TECHNIQUE: CT angiography was performed with a multi-detector CT scanner. Data acquisition was obtained from the skull base through the vertex following intravenous administration of IV 100mL Isovue-370. MIP images were reconstructed from the axial data set. Post-processing of the angiographic images was performed, with multiplanar reformation and 3D reconstruction. Individualized dose optimization techniques were used for this CT. COMPARISON: 12/01/2020, 03/15/2017 FINDINGS: Normal bilateral petrous carotid arteries. There is calcified plaque formation of the right cavernous carotid artery, without a cross-sectional luminal stenosis. There is calcified plaque formation of the left cavernous carotid artery, without a cross-sectional luminal stenosis. Normal right A1 segments of the anterior cerebral artery. Normal left A1 segments of the anterior cerebral artery. Normal intact anterior communicating artery (ACOM). Normal bilateral A2 segments of the anterior cerebral arteries. Normal right M1 and M2 segments of the middle cerebral arteries, with a normal M1 bifurcation. Normal left M1 and M2 segments of the middle cerebral arteries, with a normal M1 bifurcation. Normal right posterior communicating artery (PCOM). Normal left posterior communicating artery (PCOM). Normal bilateral vertebral arteries. Normal basilar artery with a normal basilar bifurcation. The visualized bilateral superior cerebellar (SCA) arteries are normal. Normal bilateral P1, P2 and visualized P3 segments of the posterior cerebral arteries. There is no demonstrated aneurysm of the [place]. There is no demonstrated abnormality of the visualized brain. AORTIC ARCH: Normal visualized aortic arch. Direct origin of the left vertebral artery from the aortic arch between the origin of the left common carotid artery left subclavian artery. Normal origins of the brachiocephalic, left common carotid, and left subclavian arteries. RIGHT CAROTID ARTERIES: Normal right common carotid artery (CCA). There is mild atherosclerotic plaque formation with minimal narrowing of the right carotid bulb. There is mild atherosclerotic plaque formation of the origin of the right internal carotid artery with less than 50% cross sectional diameter stenosis. Normal visualized cervical portion of the right internal carotid artery. Normal origin of the right external carotid artery (ECA). LEFT CAROTID ARTERIES: Normal left common carotid artery (CCA). There is moderate atherosclerotic plaque formation with moderate narrowing of the carotid bulb. There is extensive atherosclerotic plaque formation of the origin of the left internal carotid artery with an estimated stenosis of greater than 70%. Normal visualized cervical portion of the left internal carotid artery. Normal origin of the left external carotid artery (ECA). VERTEBRAL ARTERIES: Normal bilateral vertebral arteries. CT/CTA Head AND Neck W/ Contrast IMPRESSION: Normal CTA Head with contrast. Mild (40%) right carotid stenosis. Severe (80%) left carotid stenosis. Patent vertebral arteries bilaterally. Electronically Signed: Jacoby Willis MD at 11:56 EDT ,
[2023-12-05 14:23] LABS: CREATININE FINGERSTICK 1.1 mg/dL (0.70-1.30); EGFR FINGERSTICK > 60.0000 mL/min (>60)
== END | disposition home or self-care (01) ==
LOC: CT 13:56
PROVIDERS: PCP Nurse Practitioner Family; Referring Provider Physician Assistant; Visit Provider Physician Assistant
DX: I65.22 Occlusion and stenosis of left carotid artery (principal); Z86.73 Personal history of transient ischemic attack (TIA), and cerebral infarction without residual deficits
CPT/HCPCS: 70496; 70498; Q9967

== ENCOUNTER → 2024-07-03 | Outpatient (CLI) | payer MEDICAID, SELFPAY ==
[2024-07-04 11:15] LABS: Cholesterol 99 mg/dL (<=200); High Density Lipoprotein 23 mg/dL; Low Density Lipoprotein Calc. 43 mg/dL; Triglycerides 164 mg/dL; Very Low Density Lipoprotein 33 mg/dL (5-40); cholesterol:hdl ratio screen 4.27
[2024-07-04 11:34] LABS: ALB/GLOB Ratio 1.2 RATIO (0.9-2.4); AST(SGOT) 26 U/L (<=37); Alanine Aminotransfer ALT/SGPT 25 U/L (<=46); Albumin, Serum 4.3 g/dL (3.4-4.8); Alkaline Phosphatase 59 U/L (40-129); Anion Gap 13 (5-15); BUN 13 mg/dL (4-19); BUN/Creat Ratio 12.6 RATIO (10-20); Calcium,Total 9.5 mg/dL (7.6-11.0); Carbon Dioxide 26.7 mmol/L (21.0-32.0); Chloride 103 mmol/L (98-108); Creatinine, Serum 1.03 mg/dL (0.70-1.20); EST Glomerular Filtration Rate 83 (>60); Globulin 3.6 g/dL (2.2-4.2); Glucose 94 mg/dL (70-99); Protein, Total 7.8 g/dL (5.9-8.4); Sodium Level 143 mmol/L (133-145)
== END | disposition home or self-care (01) ==
LOC: LAB 10:55
PROVIDERS: PCP Nurse Practitioner Family; Referring Provider Physician Assistant Medical; Visit Provider Physician Assistant Medical
DX: I47.10 Supraventricular tachycardia, unspecified (principal); E78.5 Hyperlipidemia, unspecified
CPT/HCPCS: 36415; 80053; 80061